=== PATIENT | female | born 1995 | race Caucasian/White ===

== ENCOUNTER 2016-06-13 17:29 | Emergency (ER) | payer MEDICAID ==
[2016-06-13 18:30] VITALS: BP 114/68
--- NOTE | 2016-06-13 18:39 | UC ---
Throat Pain/Nasal Regino HPI - HPI Summary HPI Summary: complaint of nasal congestion and cough that started 3 days ago today started to have more of a cough both of her ears hurts sore throat d/t drainage in her throat denies fever but has chills then gets hot - checked temp but no fever took some dayquil with some relief son with similiar illness - History of Current Complaint Chief Complaint: UCGeneralIllness Stated Complaint: RUNNY NOSE HOT COLD FLASH Time Seen by Provider: 06/13/16 18:33 Hx Obtained From: Patient Hx Last Menstrual Period: 06/03/16 - Allergies/Home Medications Allergies/Adverse Reactions: Allergies Allergy/AdvReac Type Severity Reaction Status Date / Time No Known Allergies Allergy Verified 02/08/16 11:25 Home Medications: Home Medications Dayquil 06/13/16 [History] PMH/Surg Hx/FS Hx/Imm Hx Previously Healthy: Yes Endocrine History Of: Denies: Diabetes, Thyroid Disease, Hyperthyroidism, Hypothyroidism, Dyslipidemia Cardiovascular History Of: Denies: Cardiac Disorders, Hypertension, Pacemaker/ICD, Myocardial Infarction , Congestive Heart Failure, Atrial Fibrillation, Deep Vein Thrombosis, Bleeding Disorders Respiratory History Of: Denies: COPD, Asthma, Bronchitis, Pneumonia, Pulmonary Embolism GI/ History Of: Denies: Gastroesophageal Reflux, Ulcer, Gastrointestinal Bleed, Gall Bladder Disease, Kidney Stones, Diverticulitis, Renal Disease, Urosepsis Neurological History Of: Denies: TIA, CVA, Dementia, Seizures, Migraine Psychological History Of: Denies: Anxiety, Depression, Bipolar Disorder, Schizophrenia, Post Traumatic Stress Disorder Cancer History Of: Denies: Lung Cancer, Colorectal Cancer, Breast Cancer, Prostate Cancer, Cervical Cancer - Surgical History Surgical History: None - Family History Known Family History: Positive: Cardiac Disease, Hypertension, Diabetes - Social History Occupation: Employed Full-time Lives: With Family Alcohol Use: None Substance Use Type: None Substance Use Comment - Amount & Last Used: reported positive use to [facility] staff ( 06/19/15 status unknown, none per pt) Smoking Status (MU): Former Smoker Have You Smoked in the Last Year: No - Immunization History Most Recent Influenza Vaccination: fall Most Recent Tetanus Shot: 04/30/15 Most Recent Pneumonia Vaccination: unsure Review of Systems Constitutional: Chills, Fatigue Skin: Negative Eyes: Negative ENT: Sore Throat, Ear Ache, Nasal Discharge Respiratory: Cough Cardiovascular: Negative Gastrointestinal: Negative Genitourinary: Negative Motor: Negative Neurovascular: Negative Musculoskeletal: Negative Neurological: Negative Psychological: Negative All Other Systems Reviewed And Are Negative: Yes Physical Exam Triage Information Reviewed: Yes Appearance: No Pain Distress, Well-Nourished, Ill-Appearing Vital Signs: Initial Vital Signs Temp 98.2 F 06/13/16 18:25 Pulse 84 06/13/16 18:25 Resp 20 06/13/16 18:25 BP 114/68 06/13/16 18:25 Pulse Ox 96 06/13/16 18:25 Vital Signs Reviewed: Yes Eyes: Positive: Conjunctiva Clear ENT: Positive: Pharyngeal erythema, Nasal congestion, Nasal drainage, TMs normal. Negative: TM bulging, TM red Neck: Positive: No Lymphadenopathy Respiratory: Positive: Lungs clear, Normal breath sounds, No respiratory distress, No accessory muscle use Cardiovascular: Positive: RRR, No Murmur, Pulses Normal Abdomen Description: Positive: Nontender, Soft Bowel Sounds: Positive: Present Musculoskeletal: Positive: No Edema Neurological: Positive: Alert Psychological Exam: Normal Skin Exam: Normal Throat Pain/Nasal Course/Dx - Differential Dx/Diagnosis Differential Diagnosis/HQI/PQRI: Pharyngitis, URI Provider Diagnoses: URI Discharge - Discharge Plan Condition: Stable Disposition: HOME Prescriptions: Benzonatate CAP* [Tessalon CAP*] 100 mg PO TID #30 cap Oxymetazoline 0.05% NASAL SPR* [Afrin 0.05% NASAL SPRAY*] 1 spray NASAL Q12H #1 btl Patient Education Materials: Upper Respiratory Infection (ED) Forms: *Work Release Referrals: No Primary Care Phys,NOPCP [Primary Care Provider] - [facility] [place]Outside] Additional Instructions: VIRAL UPPER RESPIRATORY INFECTION (COMMON COLD) What is Viral Upper Respiratory Infection? Viral upper respiratory infection is the medical term for the common cold. Respiratory infections can be caused by either a virus or bacteria. The common cold is caused by a virus. The virus travels through the air and can be passed easily from one person to another. This is one reason that it is so important to cover your mouth when you cough or sneeze. When you cover your mouth you will get the virus on your hands. If you touch something with that hand the virus is spread to the object you touch. Because of this you should be sure to wash your hands often when you have a cold. Symptoms usually begin 1 to 3 days after the virus takes hold in your body. Other people can catch your cold even before you start to notice symptoms, which is one reason why colds are hard to prevent. Symptoms May Include: Scratchiness or tickling in the throat Sore throat Stuffy nose Generalized aches and pains Coughing or sneezing Feeling tired Treatment Recommendations: Drink plenty of clear, nonalcoholic fluids, such as water, sports drinks, or juice. For example, an average adult should drink 8 ounces every hour, a child 6 to 10 years should drink 4 ounces every hour, and a child under 6 should drink 1 to 2 ounces every hour. You should rest as much as possible. You can use a cool-mist humidifier or steam vaporizer to increase air moisture. This will make it easier to breathe. Remember that a steam vaporizer may contain hot water that can cause severe de león. If you smoke, stopsmoke irritates bronchial passages. If you are coughing up mucus, and milk seems to make the sputum thicker, do not eat or drink foods that contain milk. You want to try to cough up mucous whenever possible so that you dont get pneumonia. Do not use cough suppressant medicine without your healthcare providers [place]. You should take all medications prescribed until completely gone, or as instructed. Non-prescription medicine such as acetaminophen (Tylenol) or ibuprofen (Motrin , Advil) may help your aches, pains, and fever. Do not take someone else's medicine, or penicillin tablets that you may have saved. You could cause a more serious problem than you already have. Don't bundle up to sweat out a fever. It only makes your fever worse. If you feel cold, cover up; if you feel warm, dress lightly.
== END 2016-06-13 19:00 | disposition home or self-care (01) ==
LOC: UCEAST 17:29
DX: J06.9 Acute upper respiratory infection, unspecified (principal); Z87.891 Personal history of nicotine dependence
CPT/HCPCS: 99212; G0463

== ENCOUNTER 2016-08-22 15:57 | Emergency (ER) | payer MEDICAID ==
[2016-08-22 17:47] VITALS: BP 109/65
--- NOTE | 2016-08-22 18:20 | UC ---
Eye Complaint HPI - HPI Summary HPI Summary: The patient comes in today for: 1. Right eye discharge, stinging and hurting: Onset: Yesterday. Palliative/provocative: Warm compresses makes it better. Quality: Stinging, and hurting. Region: Right eye. Severity: 7/10 though she appears less. Time: Constant. Associated symptoms: Discharge: light yellow. Vision: blurry. Eye pain: No pain. Home treatment: None. * - History of Current Complaint Chief Complaint: UCEye Stated Complaint: EYE COMPLAINT Time Seen by Provider: 08/22/16 18:11 Hx Obtained From: Patient Hx Last Menstrual Period: June 2016; irregular - Allergies/Home Medications Allergies/Adverse Reactions: Allergies Allergy/AdvReac Type Severity Reaction Status Date / Time No Known Allergies Allergy Verified 02/08/16 11:25 PMH/Surg Hx/FS Hx/Imm Hx Previously Healthy: Yes Endocrine History Of: Denies: Diabetes, Thyroid Disease, Hyperthyroidism, Hypothyroidism, Dyslipidemia Cardiovascular History Of: Denies: Cardiac Disorders, Hypertension, Pacemaker/ICD, Myocardial Infarction , Congestive Heart Failure, Atrial Fibrillation, Deep Vein Thrombosis, Bleeding Disorders Respiratory History Of: Denies: COPD, Asthma, Bronchitis, Pneumonia, Pulmonary Embolism GI/ History Of: Denies: Gastroesophageal Reflux, Ulcer, Gastrointestinal Bleed, Gall Bladder Disease, Kidney Stones, Diverticulitis, Renal Disease, Urosepsis Neurological History Of: Denies: TIA, CVA, Dementia, Seizures, Migraine Psychological History Of: Denies: Anxiety, Depression, Bipolar Disorder, Schizophrenia, Post Traumatic Stress Disorder Cancer History Of: Denies: Lung Cancer, Colorectal Cancer, Breast Cancer, Prostate Cancer, Cervical Cancer Other History Of: Negative For: HIV, Hepatitis B, Hepatitis C, Anticoagulant Therapy - Surgical History Surgical History: None - Family History Known Family History: Positive: Cardiac Disease, Hypertension, Diabetes - Social History Occupation: Employed Full-time Alcohol Use: None Substance Use Type: None Substance Use Comment - Amount & Last Used: reported positive use to [facility] staff ( 06/19/15 status unknown, none per pt) Smoking Status (MU): Former Smoker Have You Smoked in the Last Year: No - Immunization History Most Recent Influenza Vaccination: fall Most Recent Tetanus Shot: 04/30/15 Most Recent Pneumonia Vaccination: unsure Review of Systems Constitutional: Negative Skin: Negative Eyes: Drainage, Eye Redness ENT: Negative Respiratory: Negative Cardiovascular: Negative Gastrointestinal: Negative Genitourinary: Negative All Other Systems Reviewed And Are Negative: Yes Physical Exam Triage Information Reviewed: Yes Appearance: Well-Appearing, No Pain Distress, Well-Nourished Vital Signs: Initial Vital Signs Temp 98.4 F 08/22/16 17:37 Pulse 87 08/22/16 17:37 Resp 16 08/22/16 17:37 BP 109/65 08/22/16 17:37 Pulse Ox 98 08/22/16 17:37 Vital Signs Reviewed: Yes Eyes: Positive: Conjunctiva Clear - On the patient's left eye., Conjunctiva Inflamed - On the patients right eye. No purulent discharge seen. There was no corneal opacification, and there was limbal clearing. PER, EOMI. Negative: Discharge ENT: Positive: Hearing grossly normal, Nasal drainage. Negative: Pharyngeal erythema, Nasal congestion, TM bulging, TM dull, TM red, Tonsillar swelling, Tonsillar exudate Dental: Negative: Gross Decay/Caries @, Dental Fracture @ Neck: Positive: Supple, Nontender, No Lymphadenopathy. Negative: Nuchal Rigidity Respiratory: Positive: Chest non-tender, Lungs clear, No respiratory distress, No accessory muscle use. Negative: Crackles, Wheezing Cardiovascular: Positive: RRR, No Murmur Abdomen Description: Positive: Nontender, No Organomegaly, Soft. Negative: Distended, Guarding Musculoskeletal: Positive: Strength Intact, ROM Intact, No Edema Neurological: Positive: Alert, Muscle Tone Normal Psychological: Positive: Age Appropriate Behavior, Consolable Skin: Negative: rashes, breakdown Eye Complaint Course/Dx - Course Course Of Treatment: The patient was told that I thought she may have a viral conjunctivitis, but will start treating as a bacterial one. If she does not improve over the next 2-3 days, and particularly if she gets worse, she should be seen by an cake inspector. - Differential Dx/Diagnosis Differential Diagnosis/HQI/PQRI: Conjunctivitis, Uveitis Provider Diagnoses: conjuncitivitis, bacterial (possibly viral also) right eye. Discharge - Discharge Plan Condition: Stable Disposition: HOME Referrals: No Primary Care Phys,NOPCP [Primary Care Provider] - Brett Eastman MD [Medical Doctor] - Martin Quan MD [Medical Doctor] - Additional Instructions: If you are not responding significantly to the eye drops, please be seen by one of the ophthalmologists (Dr. Eastman or Dr. Quan) for re-evaluation. If you get worse while on treatment, please be seen then.
[2016-08-22] MEDS ORDERED: Ciprofloxacin 0.3% OPTH.SOL* 2.5 ML BTL BOTH EYES ONE (18:31)
== END 2016-08-22 18:52 | disposition home or self-care (01) ==
LOC: UCEAST 15:57
DX: H10.31 Unspecified acute conjunctivitis, right eye (principal); Z87.891 Personal history of nicotine dependence
CPT/HCPCS: 99212; A9270-GY; G0463

== ENCOUNTER 2016-08-25 15:09 | Emergency (ER) | payer MEDICAID ==
--- NOTE | 2016-08-25 17:01 | UC ---
Respiratory Complaint HPI - HPI Summary HPI Summary: SEEN HERE AT 3 DAYS AGO FOR RIGHT PINK EYE. TX WITH CIPRO EYE DROPS FOR CONJUNCTIVITIS. SHE REPORTS THE DROPS ARE BURNING NOW AND HER EYE LID IS MORE SWOLLEN. CONJUNCTIVA STILL RED. [address], PAIN WITH SWALLOWING, CONGESTION, FEVER TMX 102.4 THIS AM, N/V AND LOOSE STOOLS. - History of Current Complaint Chief Complaint: UCRespiratory Stated Complaint: SINUS CONGESTION, AND SORE THROAT Time Seen by Provider: 08/25/16 16:59 Hx Obtained From: Patient Hx Last Menstrual Period: 08/24/16 Onset/Duration: Gradual Onset, Lasting Days, Still Present Timing: Constant Severity Initially: Moderate Severity Currently: Moderate Pain Intensity: 9 Pain Scale Used: 0-10 Numeric Aggravating Factors: Nothing Alleviating Factors: Nothing Associated Signs And Symptoms: Positive: Fever, Chills, Nasal Congestion. Negative: Dyspnea, Pleuritic Chest Pain, Wheezing, Hemoptysis, Dizziness, Calf Pain, Calf Swelling, Edema, URI, Sinus Discomfort - Allergies/Home Medications Allergies/Adverse Reactions: Allergies Allergy/AdvReac Type Severity Reaction Status Date / Time No Known Allergies Allergy Verified 08/25/16 16:35 PMH/Surg Hx/FS Hx/Imm Hx Previously Healthy: Yes Endocrine History Of: Denies: Diabetes, Thyroid Disease, Hyperthyroidism, Hypothyroidism, Dyslipidemia Cardiovascular History Of: Denies: Cardiac Disorders, Hypertension, Pacemaker/ICD, Myocardial Infarction , Congestive Heart Failure, Atrial Fibrillation, Deep Vein Thrombosis, Bleeding Disorders Respiratory History Of: Denies: COPD, Asthma, Bronchitis, Pneumonia, Pulmonary Embolism GI/ History Of: Denies: Gastroesophageal Reflux, Ulcer, Gastrointestinal Bleed, Gall Bladder Disease, Kidney Stones, Diverticulitis, Renal Disease, Urosepsis Neurological History Of: Denies: TIA, CVA, Dementia, Seizures, Migraine Psychological History Of: Denies: Anxiety, Depression, Bipolar Disorder, Schizophrenia, Post Traumatic Stress Disorder Cancer History Of: Denies: Lung Cancer, Colorectal Cancer, Breast Cancer, Prostate Cancer, Cervical Cancer Other History Of: Negative For: HIV, Hepatitis B, Hepatitis C, Anticoagulant Therapy - Surgical History Surgical History: None - Family History Known Family History: Positive: Cardiac Disease, Hypertension, Diabetes - Social History Alcohol Use: None Substance Use Type: None Substance Use Comment - Amount & Last Used: reported positive use to [facility] staff ( 06/19/15 status unknown, none per pt) Smoking Status (MU): Never Smoked Tobacco Have You Smoked in the Last Year: No - Immunization History Most Recent Influenza Vaccination: fall Most Recent Tetanus Shot: 04/30/15 Most Recent Pneumonia Vaccination: unsure Review of Systems Constitutional: Fever, Chills, Fatigue Eyes: Eye Redness ENT: Sore Throat, Nasal Discharge Respiratory: Negative Cardiovascular: Negative Gastrointestinal: Abdominal Pain, Vomiting, Diarrhea, Other - NAUSEA Neurological: Headache All Other Systems Reviewed And Are Negative: Yes Physical Exam Triage Information Reviewed: Yes Appearance: Well-Nourished, Ill-Appearing - MOD, Obese Vital Signs: Initial Vital Signs Temp 99.4 F 08/25/16 16:31 Pulse 115 08/25/16 16:31 Resp 18 08/25/16 16:31 BP 122/74 08/25/16 16:31 Pulse Ox 100 08/25/16 16:31 Vital Signs Reviewed: Yes Eyes: Positive: Conjunctiva Inflamed ENT: Positive: Hearing grossly normal, TMs normal, Tonsillar swelling, Tonsillar exudate, Muffled/hoarse voice. Negative: Trismus Neck: Positive: Supple, Tenderness @ - SPFL CERVICAL LAD, Enlarged Nodes @ - SPFL CERVICAL LAD Respiratory Exam: Normal Cardiovascular: Positive: Tachycardia Abdomen Description: Positive: Soft Musculoskeletal: Positive: No Edema Neurological: Positive: Alert Psychological: Positive: Normal Response To Family, Age Appropriate Behavior Skin: Negative: rashes UC Diagnostic Evaluation - Laboratory O2 Sat by Pulse Oximetry: 100 Respiratory Course/Dx - Differential Dx/Diagnosis Provider Diagnoses: 1. STREP PHARYNGITIS - CLINICAL DIAGNOSIS. 2. RIGHT CONJUNCTIVITIS Discharge - Discharge Plan Condition: Stable Disposition: HOME Prescriptions: Amoxicillin CAP* [Amoxicillin 500 MG CAP*] 1,000 mg PO Q12H #40 cap Patient Education Materials: Strep Throat (ED), Conjunctivitis (ED) Forms: *Work Release Referrals: Martin Quan MD [Medical Doctor] - 1 Day Brett Eastman MD [Medical Doctor] - 1 Day Additional Instructions: CLINICALLY YOU HAVE STREP SO WILL TREAT YOU SUCH WITH 10 DAYS OF AMOXICILLIN. TAKE FOR THE FULL 10 DAYS. OTC CHLORASEPTIC OR CEPACOL LOZENGES FOR SORE THROAT NEEDED ONCE SYMPTOMS RESOLVED - NEW TOOTHBRUSH DO NOT SHARE FOOD, DRINK, UTENSILS YOUR RIGHT EYE CONJUNCTIVITIS IS NOT IMPROVING EXPECTED. SINCE YOU REPORT THE EYE DROPS ARE MAKING YOUR EYE FEEL WORSE STOP USING THESE. CALL EITHER DR. EASTMAN OR DR. QUAN'S OFFICE TOMORROW FOR A FOLLOW-UP APPT FOR RE-EVALUATION IN THE NEXT 1-2 DAYS. YOU CAN USE PRESERVATIVE FREE SALINE EYE DROPS AVAILABLE OTC TO HELP WITH LUBRICATION.
[2016-08-25 17:38] VITALS: BP 120/78
[2016-08-25] MEDS ORDERED: Ibuprofen TAB* 600 MG PO ONE (17:43)
== END 2016-08-25 17:47 | disposition home or self-care (01) ==
LOC: UCEAST 15:09
DX: H10.31 Unspecified acute conjunctivitis, right eye (principal); J02.0 Streptococcal pharyngitis; E66.9 Obesity, unspecified
CPT/HCPCS: 99212; A9270-GY; G0463

== ENCOUNTER 2017-03-06 19:52 | Emergency (ER) | payer MEDICAID ==
--- NOTE | 2017-03-06 22:00 | UC ---
Back Pain HPI - HPI Summary HPI Summary: has had intermittent episodes of flank pain radiating around in to her abdomen for the past several months.. today had left flank pain all day sometimes Ibuprofen and heat helps no urinary symptoms, fevers, chills, nausea or vomiting - History of Current Complaint Chief Complaint: UCAbdominalPain Stated Complaint: ABD & BACK PAIN Time Seen by Provider: 03/06/17 21:40 Hx Obtained From: Patient Hx Last Menstrual Period: 2-3 MONTHS AGO ?: No Onset/Duration: Gradual Onset, Lasting Days - 1, Other Timing: Constant Severity Initially: Moderate Severity Currently: Moderate Pain Intensity: 5 Pain Scale Used: 0-10 Numeric Back Pain: Is Discrete @ - left flank left side of abdomen Character: Spasmodic Aggravating Factor(s): Nothing Alleviating Factor(s): Heat, OTC Meds Associated Signs And Symptoms: Positive: Negative - Allergies/Home Medications Allergies/Adverse Reactions: Allergies Allergy/AdvReac Type Severity Reaction Status Date / Time No Known Allergies Allergy Verified 03/06/17 20:24 Home Medications: Home Medications Acetaminophen TAB* [Tylenol TAB*] 650 mg PO ONCE PRN 03/06/17 [History Confirmed 03/06/17] Ibuprofen TAB* [Advil TAB*] 600 mg PO ONCE PRN 03/06/17 [History Confirmed 03/06] PMH/Surg Hx/FS Hx/Imm Hx Previously Healthy: Yes Other History Of: Negative For: HIV, Hepatitis B, Hepatitis C, Anticoagulant Therapy - Surgical History Surgical History: None - Family History Known Family History: Positive: Cardiac Disease, Hypertension, Diabetes - Social History Occupation: Employed Full-time Lives: With Family Alcohol Use: Rare Substance Use Type: None Substance Use Comment - Amount & Last Used: reported positive use to [facility] staff ( 06/19/15 status unknown, none per pt) Smoking Status (MU): Never Smoked Tobacco Have You Smoked in the Last Year: No - Immunization History Most Recent Influenza Vaccination: fall Most Recent Tetanus Shot: 04/30/15 Most Recent Pneumonia Vaccination: unsure Review of Systems Constitutional: Negative Skin: Negative Eyes: Negative ENT: Negative Respiratory: Negative Cardiovascular: Negative Gastrointestinal: Negative Genitourinary: Negative, Other - left flank pain Motor: Negative Neurovascular: Negative Musculoskeletal: Negative Neurological: Negative Psychological: Negative Is Patient Immunocompromised?: No All Other Systems Reviewed And Are Negative: Yes Physical Exam Triage Information Reviewed: Yes Appearance: Well-Appearing, No Pain Distress, Obese Vital Signs: Initial Vital Signs Temp 99.1 F 03/06/17 20:18 Pulse 98 03/06/17 20:18 Resp 16 03/06/17 20:18 BP 141/95 03/06/17 20:18 Pulse Ox 99 03/06/17 20:18 Vital Signs Reviewed: Yes Eye Exam: Normal Eyes: Positive: Conjunctiva Clear ENT Exam: Normal ENT: Positive: Normal ENT inspection, Hearing grossly normal. Negative: Nasal congestion, Nasal drainage, Hoarse voice, Sinus tenderness Dental Exam: Normal Neck exam: Normal Neck: Positive: Supple, Nontender Respiratory Exam: Normal Respiratory: Positive: Chest non-tender, Lungs clear, No respiratory distress, No accessory muscle use Cardiovascular Exam: Normal Cardiovascular: Positive: RRR, Pulses Normal, Brisk Capillary Refill Abdominal Exam: Normal Abdomen Description: Positive: No Organomegaly, Soft, CVA Tenderness (L) Bowel Sounds: Positive: Present Musculoskeletal Exam: Normal Musculoskeletal: Positive: Strength Intact, ROM Intact, No Edema Neurological Exam: Normal Neurological: Positive: Alert, Muscle Tone Normal Psychological Exam: Normal Skin Exam: Normal Back Pain Course/Dx - Course Course Of Treatment: encouraging patient to go to ED for evaluation for left flank pain, patient is deciding will increase fluids and follow with pcp or at urgent care - Differential Dx/Diagnosis Provider Diagnoses: left flank pain, hematuria Discharge - Discharge Plan Condition: Stable Disposition: HOME Patient Education Materials: Hematuria (ED), Flank Pain (ED) Referrals: No Primary Care Phys,NOPCP [Primary Care Provider] - Additional Instructions: Increase fluids, Tylenol ibuprofen, We are suggesting you follow with the emergency department for a ct scan . You have the absolute right to refuse -- and follow up tomorrow but I encourage you to go to Emergency department for increasing pain or fever
[2017-03-06 22:08] VITALS: BP 119/70
== END 2017-03-06 22:08 | disposition home or self-care (01) ==
LOC: UCEAST 19:52
DX: R10.32 Left lower quadrant pain (principal); R31.9 Hematuria, unspecified; Z32.02 Encounter for pregnancy test, result negative; E66.9 Obesity, unspecified
CPT/HCPCS: 81003; 84702; 87086; 99212; G0463

== ENCOUNTER 2017-03-13 09:50 | Emergency (ER) | payer MEDICAID, OTHER ==
[2017-03-13] MEDS ORDERED: NS 0.9% 1000 ML* 1,000 ML IV ONE (10:23)
[2017-03-13] MEDS ORDERED: Ketorolac INJ* 30 MG/ML 1 ML VIAL IV ONE (10:23)
[2017-03-13 11:12] LABS: Hematocrit 41 % (35-47); Hemoglobin 13.9 g/dl (12.0-16.0); Mean Corpuscular HGB Conc 34 g/dl (31-36); Mean Corpuscular Hemoglobin 30 pg (27-31); Mean Corpuscular Volume 87 fL (80-97); Mean Platelet Volume 9 um3 (7.4-10.4); Red Blood Count 4.67 10^6/ul (4.0-5.4); Red Cell Distribution Width 13 % (10.5-15); White Blood Count 9.8 10^3/ul (3.5-10.8)
[2017-03-13 11:15] LABS: Urine Bacteria Absent (Absent); Urine Bilirubin Negative (Negative); Urine Glucose Negative (Negative); Urine Nitrite Negative (Negative)
[2017-03-13 11:27] LABS: ALT 24 U/L (7-52); AST 19 U/L (13-39); Albumin 4.3 g/dL (3.2-5.2); Alkaline Phosphatase 55 U/L (34-104); Anion Gap 9 mmol/L (2-11); BUN/Creatinine Ratio 15.8 (8-20); Blood Urea Nitrogen 12 mg/dL (6-24); C Reactive Protein 14.51 mg/L (< 5.00); CO2 Carbon Dioxide 23 mmol/L (22-32); Calcium 9.8 mg/dL (8.6-10.3); Chloride 105 mmol/L (101-111); EGFR African American 121.3 (>60); EGFR Non-African American 94.3 (>60); Globulin 3.6 g/dL (2-4); Glucose 133 mg/dL (70-100); Lipase 15 U/L (11.0-82.0); Potassium 3.6 mmol/L (3.5-5.0); Sodium 137 mmol/L (133-145); Total Protein 7.9 g/dL (6.4-8.9)
--- NOTE | 2017-03-13 13:14 | RAD ---
CLINICAL HISTORY: Left flank pain and nausea and vomiting. COMPARISON: None TECHNIQUE: Noncontrast CT examination of the abdomen and pelvis from the lung bases through the initial tuberosities. FINDINGS: VISUALIZED LUNG BASES: The visualized lung bases are grossly clear. There is no pleural effusion. ABDOMEN AND PELVIS: Evaluation of the solid organs and vasculature is limited without intravenous contrast. The spleen is mildly elevated measuring 13 cm in greatest axial dimension. The liver, pancreas and adrenal glands are grossly normal in appearance. The gallbladder is normal. The kidneys are normal in appearance without focal mass, calcification or signs of hydronephrosis. Evaluation of the gastrointestinal tract is limited without intravenous contrast. The small and large bowel are not distended. The appendix is questionably identified adjacent to the base of the cecum (axial image 100). Visualized are not, there are no acute inflammatory changes in the right lower quadrant to indicate acute appendicitis. There is no gross retroperitoneal or mesenteric lymphadenopathy. The pelvic viscera is normal in appearance. The abdominal aorta and iliac arteries are normal in course and diameter. The visualized bones are normal. IMPRESSION: 1. There are no renal calculi or signs of hydronephrosis. 2. Minimally enlarged spleen of uncertain clinical significance.
[2017-03-13 15:07] VITALS: BP 101/65
--- NOTE | 2017-03-13 15:54 | ED ---
Nir Goss Abhishek, scribed for Tomas Hill MD on 03/13/17 at 1016 . Abdominal Pain/Female - HPI Summary HPI Summary: This patient is a 21 year old F presenting to [facility] with a chief complaint of abd pain since 0800 today. Abd pain is described in both flanks. Pain begins in the lower back and radiates to the sides of her abd (both flanks). Patient states that she previously had a chief complaint of left flank pain and presented to the [facility] last Tuesday. Patient was referred to the ED but did not agree with recommendation. The patient rates the pain 7/10 in severity. Symptoms aggravated by nothing. Symptoms alleviated by nothing. Patient reports N/V, and hematuria (one week ago). Patient denies diarrhea. Menstrual cycle 2 months ago. - History of Current Complaint Chief Complaint: EDFlankPain Stated Complaint: FLANK AND STOMACH PAIN Time Seen by Provider: 03/13/17 10:01 Hx Obtained From: Patient Hx Last Menstrual Period: 2-3 MONTHS AGO ?: No Onset/Duration: Sudden Onset - 0800 today, Lasting Hours - 0800 today, Still Present Severity Initially: Moderate Severity Currently: Moderate Pain Intensity: 7 Pain Scale Used: 0-10 Numeric Location: Diffuse - Left Flank, Other - Begins at Lower back Radiates: Yes Radiates to: Flank Aggravating Factor(s): Nothing Alleviating Factor(s): Nothing Associated Signs and Symptoms: Positive: Nausea, Vomiting, Other: - Hematuria. Negative: Diarrhea Allergies/Adverse Reactions: Allergies Allergy/AdvReac Type Severity Reaction Status Date / Time No Known Allergies Allergy Verified 03/06/17 20:24 PMH/Surg Hx/FS Hx/Imm Hx Endocrine/Hematology History: Denies: Hx Anticoagulant Therapy, Hx Diabetes, Hx Thyroid Disease Cardiovascular History: Denies: Hx Congestive Heart Failure, Hx Deep Vein Thrombosis, Hx Hypertension , Hx Myocardial Infarction, Hx Pacemaker/ICD Respiratory History: Denies: Hx Asthma, Hx Chronic Obstructive Pulmonary Disease (COPD), Hx Lung Cancer, Hx Pneumonia, Hx Pulmonary Embolism GI History: Denies: Hx Gall Bladder Disease, Hx Gastrointestinal Bleed, Hx Ulcer, Hx Urosepsis History: Denies: Hx Kidney Infection, Hx Kidney Stones, Hx Renal Disease, Other Problems/Disorders Sensory History: Denies: Hx Hearing Aid Neurological History: Denies: Hx Dementia, Hx Migraine, Hx Seizures, Hx Transient Ischemic Attacks (TIA) Psychiatric History: Denies: Hx Anxiety, Hx Depression, Hx Panic Disorder, Hx Schizophrenia, Hx Bipolar Disorder, Other Psychiatric Issues/Disorders Infectious Disease History: No Infectious Disease History: Denies: Hx Clostridium Difficile, Hx Hepatitis, Hx Human Immunodeficiency Virus (HIV), Hx of Known/Suspected MRSA, Hx Shingles, Hx Tuberculosis, History Other Infectious Disease, Traveled Outside the [place] in Last 30 Days - Family History Known Family History: Positive: Cardiac Disease, Hypertension, Diabetes - Social History Alcohol Use: Rare Substance Use Type: Reports: None Substance Use Comment - Amount & Last Used: reported positive use to [facility] staff ( 06/19/15 status unknown, none per pt) Smoking Status (MU): Never Smoked Tobacco Have You Smoked in the Last Year: No Review of Systems Constitutional: Negative Eyes: Negative ENT: Negative Cardiovascular: Negative Respiratory: Negative Positive: Abdominal Pain - both flanks, Vomiting, Nausea. Negative: Diarrhea Positive: hematuria Musculoskeletal: Negative Skin: Negative Neurological: Negative Psychological: Normal All Other Systems Reviewed And Are Negative: Yes Physical Exam - Summary Physical Exam Summary: VITAL SIGNS: Reviewed. GENERAL: ~Patient is a well-developed and nourished (FEMALE) who is lying comfortable in the stretcher. ~Patient is not in any acute respiratory distress. HEAD AND FACE: No signs of trauma. ~No ecchymosis, hematomas or skull depressions. No sinus tenderness. EYES: PERRLA, EOMI x 2, No injected conjunctiva, no nystagmus. EARS: Hearing grossly intact. Ear canals and tympanic membranes are within normal limits. MOUTH: Oropharynx within normal limits. NECK: Supple, trachea is midline, no adenopathy, no JVD, no carotid bruit, no c- spine tenderness, neck with full ROM. CHEST: Symmetric, no tenderness at palpation LUNGS: Clear to auscultation bilaterally. No wheezing or crackles. CVS: Regular rate and rhythm, S1 and S2 present, no murmurs or gallops appreciated. ABDOMEN: Soft, non-tender. No signs of distention. No rebound no guarding, and no masses palpated. Bowel sounds are normal. EXTREMITIES: FROM in all major joints, no edema, no cyanosis or clubbing. NEURO: Alert and oriented x 3. No acute neurological deficits. Speech is normal and follows commands. SKIN: Dry and warm Musculoskeletal: Left costovertebral angle tenderness Triage Information Reviewed: Yes Vital Signs On Initial Exam: Initial Vitals Temp Pulse Resp BP Pulse Ox 97.3 F 107 19 128/80 96 03/13/17 09:54 03/13/17 09:54 03/13/17 09:54 03/13/17 09:54 03/13/17 09:54 Vital Signs Reviewed: Yes Diagnostics - Vital Signs Vital Signs Temp Pulse Resp BP Pulse Ox 03/13/17 09:54 97.3 F 107 19 128/80 96 - Laboratory Lab Results: Lab Results 03/13/17 03/13/17 03/13/17 Range/Units 11:00 11:00 11:00 WBC 9.8 (3.5-10.8) 10^3/ul RBC 4.67 (4.0-5.4) 10^6/ul Hgb 13.9 (12.0-16.0) g/dl Hct 41 (35-47) % MCV 87 (80-97) fL MCH 30 (27-31) pg MCHC 34 (31-36) g/dl RDW 13 (10.5-15) % Plt Count 306 (150-450) 10^3/ul MPV 9 (7.4-10.4) um3 Neut % (Auto) 68.3 (38-83) % Lymph % (Auto) 22.4 L (25-47) % [place] % (Auto) 7.7 (1-9) % Eos % (Auto) 0.8 (0-6) % Baso % (Auto) 0.8 (0-2) % Absolute Neuts (auto) 6.7 (1.5-7.7) 10^3/ul Absolute Lymphs (auto) 2.2 (1.0-4.8) 10^3/ul Absolute Monos (auto) 0.8 (0-0.8) 10^3/ul Absolute Eos (auto) 0.1 (0-0.6) 10^3/ul Absolute Basos (auto) 0.1 (0-0.2) 10^3/ul Absolute Nucleated RBC 0 10^3/ul Nucleated RBC % 0 Sodium 137 (133-145) mmol/L Potassium 3.6 (3.5-5.0) mmol/L Chloride 105 (101-111) mmol/L Carbon Dioxide 23 (22-32) mmol/L Anion Gap 9 (2-11) mmol/L BUN 12 (6-24) mg/dL Creatinine 0.76 (0.51-0.95) mg/dL Est GFR ( Amer) 121.3 (>60) Est GFR (Non-Af Amer) 94.3 (>60) BUN/Creatinine Ratio 15.8 (8-20) Glucose 133 H (70-100) mg/dL Calcium 9.8 (8.6-10.3) mg/dL Total Bilirubin 0.40 (0.2-1.0) mg/dL AST 19 (13-39) U/L ALT 24 (7-52) U/L Alkaline Phosphatase 55 (34-104) U/L C-Reactive Protein 14.51 H (< 5.00) mg/L Total Protein 7.9 (6.4-8.9) g/dL Albumin 4.3 (3.2-5.2) g/dL Globulin 3.6 (2-4) g/dL Albumin/Globulin Ratio 1.2 (1-3) Lipase 15 (11.0-82.0) U/L Beta HCG, Quant < 0.60 mIU/mL Urine Color Kandy Urine Appearance Cloudy Urine pH 5.0 (5-9) Ur Specific [place] 1.029 (1.010-1.030) Urine Protein Negative (Negative) Urine Ketones Trace H (Negative) Urine Blood 1+ H (Negative) Urine Nitrate Negative (Negative) Urine Bilirubin Negative (Negative) Urine Urobilinogen Negative (Negative) Ur Leukocyte Esterase 3+ H (Negative) Urine WBC (Auto) 3+(>20/hpf) H (Absent) Urine RBC (Auto) 1+(3-5/hpf) H (Absent) Ur Squamous Epith Cells Present H (Absent) Urine Bacteria Absent (Absent) Urine Glucose Negative (Negative) Result Diagrams: 03/13/17 11:00 03/13/17 11:00 Lab Statement: Any lab studies that have been ordered have been reviewed, and results considered in the medical decision making process. - CT CT A/P CT Interpretation Completed By: Radiologist - CT A/P reveals 1. There are no renal calculi or signs of hydronephrosis. 2. Minimally enlarged spleen of uncertain clinical significance. ED physician has reviewed this radiology report and agrees. Abdominal Pain Fem Course/Dx - Course Course Of Treatment: In the ED course an IV access was obtained. Patient was placed in a radiation monitor. Patient was started with IV fluids. She was given Toradol for pain. Labs without any significant abnormality except for glucose 14.5 and UA is contaminated. We will send for Urine culture. Abdominal and pelvic CT impression: No renal calculi or signs of hydronephrosis. Spleen minimally enlarged. Patient was advise of spleen findings. I offered a pelvic exam and patient declined. After medications patient symptoms improved. I discussed all the findings and test results with the patient. Patient was instructed to return to the emergency room immediately if any of the symptoms return or worsens. They were explained the possibility of an early abdominal pathology which was not detected at this time despite the physical exam and testing. They understand and agree. Abdominal exam before discharge: Soft, NT. No signs of distention. BS present. No rebound no guarding, and no masses palpated. Patient is alert and oriented and hemodynamically stable. Patient is to follow up with primary care physician in the next 2 to 3 days. Patient agree and understands. - Diagnoses Differential Diagnosis: Positive: Constipation, , Renal Colic, Urinary Tract Infection Provider Diagnoses: Flank pain Discharge - Discharge Plan Condition: Stable Disposition: HOME Patient Education Materials: Flank Pain (ED) Referrals: No Primary Care Phys,NOPCP [Primary Care Provider] - (Follow up with PCP as needed. Return to the ED for worsening symptoms.) The documentation as recorded by the Nri zavala Abhishek accurately reflects the service I personally performed and the decisions made by me, Tomas Hill MD.
== END 2017-03-13 15:06 | disposition home or self-care (01) ==
LOC: ED 09:50
DX: R10.84 Generalized abdominal pain (principal); R11.2 Nausea with vomiting, unspecified; R31.9 Hematuria, unspecified
CPT/HCPCS: 36415; 74176; 80053; 81003; 81015; 83690; 84702; 85025; 86140; 87086; 96374; 99283; J1885